=== PATIENT | female | born 1955 | race Caucasian/White ===

== ENCOUNTER 2020-01-11 10:32 | Outpatient (CLI) | payer OTHER | END 2020-01-11 10:47 | disposition home or self-care (01) | LOC: RX STUDY 10:32 | DX: R13.19 Other dysphagia (principal); R09.89 Other specified symptoms and signs involving the circulatory and respiratory systems; T17.220A Food in pharynx causing asphyxiation, initial encounter; R06.02 Shortness of breath; R09.81 Nasal congestion; B35.8 Other dermatophytoses; E11.620 Type 2 diabetes mellitus with diabetic dermatitis; E78.49 Other hyperlipidemia; I10 Essential (primary) hypertension; K76.0 Fatty (change of) liver, not elsewhere classified; R16.0 Hepatomegaly, not elsewhere classified; R16.1 Splenomegaly, not elsewhere classified; E66.01 Morbid (severe) obesity due to excess calories; M25.78 Osteophyte, vertebrae ==